=== PATIENT | female | born 1955 | race Caucasian/White ===

== ENCOUNTER 2023-05-30 10:27 | Inpatient (IN) | payer OTHER ==
[2023-05-30 11:14] LABS: Specific Gravity 1.008 (1.005-1.030); Urine Bilirubin NEGATIVE (Negative); Urine Blood Negative (Negative); Urine Clarity Clear (Clear); Urine Color Colorless (Yellow); Urine Glucose NEGATIVE (Negative); Urine Protein NEGATIVE (Negative); Urine Urobilinogen Normal (Normal)
[2023-05-30 11:23] LABS: Absolute Lymphocytes (CBC) 0.2 K/uL (0.7-4.9); Hematocrit 24.9 % (36.0-45.0); Lymphocytes % 3.7 % (15.3-44.8); MCV 73.5 fL (80-100); MPV 7.7 fL (7.6-11.3); Platelets 172 thou/uL (152-406); RBC Red Blood Cell Count 3.39 M/uL (3.86-4.86)
[2023-05-30 11:28] LABS: Protime INR 1.08
[2023-05-30 11:44] LABS: Albumin 2.6 g/dL (3.4-5.0); Bilirubin Direct 0.1 mg/dL (0-0.2); Bilirubin Indirect, Calculated 0.2 mg/dL (0.2-0.8); Bilirubin Total 0.3 mg/dL (0.2-1.0); Magnesium 1.6 mg/dL (1.6-2.4); Potassium 4.1 mEq/L (3.5-5.1); Protein, Total 5.5 g/dL (6.4-8.2)
[2023-05-30 11:52] LABS: Anisocytosis 1+; Blood Morphology Comment NOT SEEN (NOT SEEN); Hypochromasia 1+; Platelet Estimate ADEQ; White Blood Cell Scan OK (OK)
--- NOTE | 2023-05-30 12:23 | RAD REPORT ---
[facility] 11:43 am CLINICAL HISTORY: CHEST PAIN COMPARISON: No comparisons TECHNIQUE: Portable AP view of the chest. FINDINGS: Diffuse hyperinflation. Patchy right mid to lower lung airspace opacities. No pneumothora x or effusion. The cardiomediastinal contours are unremarkable. IMPRESSION: Patchy right mid to lower lung airspace opacities, concerning for pneumonia.
--- NOTE | 2023-05-30 12:35 | RAD REPORT ---
EXAM DESCRIPTION: CT - Head Brain Wo Cont - 05/30/2023 12:28 pm CLINICAL HISTORY: CONFUSED Headache, drowsiness COMPARISON: No comparisons TECHNIQUE: All CT scans are performed using dose optimization technique as appropriate and may inclu de automated exposure control or mA/KV adjustment according to patient size. FINDINGS: No intracranial hemorrhage, hydrocephalus or extra-axial fluid collection.Mild generalized brain atrophy.No areas of brain edema or evidence of midline shift. The paranasal sinuses and mastoids are clear. The calvarium is intact. IMPRESSION: No acute intracranial abnormality.
--- NOTE | 2023-05-30 12:42 | EDPHYS ---
Physician Documentation [facility] Name: Delfina Matos Age: 68 yrs Sex: Female : 1955 Arrival Date: 05/30/2023 Time: 10:27 Bed 7 Private MD: ED Physician Tk Ty HPI: 05/30 10:42 This 68 yrs old Female presents to ER via EMS with complaints of Chest Pain. ci 10:42 Patient is a 68-year-old female with PMH hypertension, hyperlipidemia, STEMI s/p PCI ci 05/05 who presents with chest pain and possible sepsis. EMS reports that family called for right-sided chest pain that feels similar to when she had a STEMI a few weeks ago. Upon their arrival patient was given 324 mg aspirin which resolved chest pain. Initial blood pressure for EMS was SBP 80, temp 102. Patient was started on 2 L normal saline bolus which improved blood pressure to 100s. Patient's family also reports that she has been confused, AO x 2-3. . Historical: - Allergies: 10:35 Codeine; ld1 - Home Meds: 10:35 clopidogrel oral [Active]; Lasix Oral [Active]; Hydrocodone-Acetaminophen Oral [Active];ld1 - PMHx: 10:35 insomnia; Hypertensive disorder; Hypercholesterolemia; Neuropathy; Myocardial ld1 infarction; Cancer of throat and neck; - PSHx: 10:35 Heart stent; ld1 - Immunization history:: Adult Immunizations up to date, Client reports receiving the 2nd dose of the Covid vaccine. - Social history:: Smoking status: Patient reports the use of cigarette tobacco products, smokes one-half pack cigarettes per day. - History obtained from: EMS. ROS: 10:42 Constitutional: Positive for fever, Negative for body aches, fatigue, ci 10:42 Cardiovascular: Positive for chest pain, Negative for edema, orthopnea, palpitations, 10:42 Respiratory: Positive for cough, Negative for hemoptysis, shortness of breath, wheezing, 10:42 Abdomen/GI: Positive for nausea, Negative for abdominal pain, vomiting, diarrhea, constipation, 10:42 Neuro: Positive for altered mental status, Negative for dizziness, gait disturbance, headache, hearing loss, loss of consciousness, Exam: 10:42 Constitutional: This is a well developed, well nourished patient who is awake, alert, ci and in no acute distress. Head/Face: Normocephalic, atraumatic. Eyes: Pupils equal round and reactive to light, extra-ocular motions intact. Lids and lashes normal. Conjunctiva and sclera are non-icteric and not injected. Cornea within normal limits. Periorbital areas with no swelling, redness, or edema. ENT: Nares patent. No nasal discharge, no septal abnormalities noted. Tympanic membranes are normal and external auditory canals are clear. Oropharynx with no redness, swelling, or masses, exudates, or evidence of obstruction, uvula midline. Mucous membranes moist. Neck: Trachea midline, no thyromegaly or masses palpated, and no cervical lymphadenopathy. Supple, full range of motion without nuchal rigidity, or vertebral point tenderness. No Meningismus. Chest/axilla: Normal chest wall appearance and motion. Nontender with no deformity. No lesions are appreciated. Cardiovascular: Regular rate and rhythm with a normal S1 and S2. No gallops, murmurs, or rubs. Normal PMI, no JVD. No pulse deficits. Respiratory: Lungs have equal breath sounds bilaterally, clear to auscultation and percussion. No rales, rhonchi or wheezes noted. No increased work of breathing, no retractions or nasal flaring. Abdomen/GI: Soft, non-tender, with normal bowel sounds. No distension or tympany. No guarding or rebound. No evidence of tenderness throughout. Back: No spinal tenderness. No costovertebral tenderness. Full range of motion. Skin: Warm, dry with normal turgor. Normal color with no rashes, no lesions, and no evidence of cellulitis. MS/ Extremity: Pulses equal, no cyanosis. Neurovascular intact. Full, normal range of motion. Neuro: Awake and alert, GCS 15, oriented to person, place, time, and situation. Cranial nerves II-XII grossly intact. Motor strength 5/5 in all extremities. Sensory grossly intact. Cerebellar exam normal. Normal gait. Psych: Awake, alert, with orientation to person, place and time. Behavior, mood, and affect are within normal limits. Vital Signs: 10:33 BP 83 / 41; Pulse 66; Temp 98.5(O); Pulse Ox 88% on R/A; Weight 53.98 kg; Height 5 ft. ld1 4 in. ; Pain 0/10; 10:38 BP 93 / 50; ld1 10:38 Pulse Ox 96% on 3 lpm NC; ld1 11:03 BP 123 / 50; Pulse 77; Resp 18; Pulse Ox 100% on 3 lpm NC; ld1 12:00 BP 90 / 55; Pulse 84; ld1 12:06 BP 114 / 48; Pulse 83; Resp 18; Pulse Ox 95% on R/A; ld1 12:15 BP 87 / 59; Pulse 76; ld1 12:26 BP 81 / 45; Pulse 72; ld1 12:30 BP 79 / 45; Pulse 71; ld1 12:37 BP 76 / 43; Pulse 77; ld1 12:45 BP 79 / 43; Pulse 73; ld1 13:12 BP 74 / 49; Pulse 78; ld1 13:15 BP 81 / 58; Pulse 75; ld1 13:27 BP 99 / 43; Pulse 73; ld1 13:29 BP 99 / 43; ld1 13:32 BP 118 / 45; Pulse 73; Resp 18; Pulse Ox 100% on 3 lpm NC; ld1 13:48 BP 118 / 35; ld1 13:53 BP 141 / 45; ld1 10:33 Body Mass Index 20.43 (53.98 kg, 162.56 cm) ld1 10:33 Pain Scale: Adult ld1 Procedures: 20:00 Central Line: the site was prepped with in sterile fashion, ChloraPrep, a triple lumen ci catheter was inserted, in the left femoral vein, in 1 attempts. placement was verified, by blood return, the site was dressed with Tegaderm, using sterile technique, the patient tolerated the procedure, well, 7.5 Upper Sorbian triple-lumen CVC placed with ultrasound guidance to the left femoral. Patient requiring persistent vasopressor support. Informed consent obtained. Patient tolerated procedure well, no immediate complications. MDM: 10:36 Patient medically screened. len 10:42 Differential diagnosis: abnormal EKG, acute myocardial infarction, coronary artery ci disease congestive heart failure esophagitis, gastroesophageal reflux disease (GERD), myocarditis, pneumonia, unstable angina, Sepsis, UTI. HEART Score: History: Moderately Suspicious (1), ECG: Normal (0), Age: > or = 65 years (2), Risk Factors: > or = 3 Risk factors for atherosclerotic disease (2), Troponin: < or = 1 x Normal Limit (0), Total Score = 6. The patient was not given aspirin in the Emergency Department. Administered by EMS. Data reviewed: vital signs, nurses notes, EKG. Independent interpretation of the following test(s) in the Emergency Department EKG: See my EKG interpretation above. Historians other than the Patient:. Care significantly affected by the following Social Determinants of Health: [facility] daughter . ED course: Patient presents with chest pain, concerns of sepsis. She is hypotensive on arrival, chest pain resolved prior to arrival to the ED. She is AOx3, CN II through XII is grossly intact no focal neurodeficits. Will obtain cardiac workup, infectious workup, CT head. Patient will likely require admission. Final disposition is pending labs and imaging.. 12:01 ED course: Awaiting chest x-ray, CT head. EMS did report that prior to arrival patient ci had received blood pressure meds and Lasix, likely contributing to her hypertension. BNP is elevated however patient is not hypoxic, not tachypneic, denies shortness of breath.. 12:35 Awaiting: CT scan results, waiting for transport. ci 12:37 ED course: Patient noted to be hypotensive on the monitor with SBP 74 after she ci returned from CT. Repeat blood pressure shows SBP 78. Will start on peripheral levo and admit to ICU for shock, cardiogenic versus septic. Patient received a total of 2 L normal saline bolus that was ongoing prior to arrival. proBNP elevated, possible CHF, will further fluid bolus. Hypoxic with O2 sat 89% on arrival, started on 2 to 3 L O2 via nasal cannula.. 20:00 ED course: Critical care time: I have personally spent 60 minutes of critical care ci time, exclusive of time spent on any procedures, and evaluation and management of this critically ill patient's condition of undifferentiated shock, hypoxic respiratory failure. I provided the following critical care treatment, vasopressor support, blood pressure management. 05/30 10:41 Order name: Basic Metabolic Panel; Complete Time: 12:00 ci 05/30 12:36 Interpretation: Abnormal: CRE 1.18. ci 05/30 10:41 Order name: CBC with Diff; Complete Time: 12:00 ci 05/30 11:42 Interpretation: Abnormal: HGB 7.7. ci 05/30 10:41 Order name: LFT's; Complete Time: 12:00 ci 05/30 10:41 Order name: Magnesium; Complete Time: 12:00 ci 05/30 10:41 Order name: NT PRO-BNP; Complete Time: 12:00 ci 05/30 Interpretation: Abnormal: NT PRO-BNP 4134. ci 05/30 10:41 Order name: PT-INR; Complete Time: 11:42 ci 05/30 10:41 Order name: Troponin HS; Complete Time: 12:00 ci 05/30 10:41 Order name: Blood Culture Adult (2) ci 05/30 10:41 Order name: Lactate w/ 2H reflex if indic.; Complete Time: 12:00 ci 05/30 12:36 Interpretation: Within normal limits. ci 05/30 10:41 Order name: Urinalysis w/ reflexes; Complete Time: 11:42 ci 05/30 10:41 Order name: Ptt, Activated; Complete Time: 11:42 ci 05/30 10:52 Order name: COVID-19 SARS RT PCR; Complete Time: 12:00 ci 05/30 10:52 Order name: Flu ci 05/30 11:28 Order name: CBC Smear Scan; Complete Time: 12:00 EDMS 05/30 13:16 Order name: Lactate w/ 2H reflex if indic.; Complete Time: 19:10 EDMS 05/30 13:29 Order name: T4 Free EDMS 05/30 13:29 Order name: Thyroid Stimulating Hormone EDMS 05/30 13:29 Order name: Urinalysis w/ reflexes EDMS 05/30 13:29 Order name: Basic Metabolic Panel EDMS 05/30 13:29 Order name: Basic Metabolic Panel EDMS 05/30 13:29 Order name: Basic Metabolic Panel EDMS 05/30 13:29 Order name: Basic Metabolic Panel EDMS 05/30 13:29 Order name: CBC with Automated Diff EDMS 05/30 13:29 Order name: CBC with Automated Diff EDMS 05/30 13:29 Order name: CBC with Automated Diff EDMS 05/30 13:29 Order name: CBC with Automated Diff EDMS 05/30 13:29 Order name: Lipid Profile EDMS 05/30 13:29 Order name: Lipid Profile EDMS 05/30 13:29 Order name: Magnesium EDMS 05/30 13:29 Order name: Magnesium EDMS 05/30 13:29 Order name: Magnesium EDMS 05/30 13:29 Order name: Magnesium EDMS 05/30 13:29 Order name: NT PRO-BNP EDMS 05/30 13:29 Order name: NT PRO-BNP EDMS 05/30 13:29 Order name: NT PRO-BNP EDMS 05/30 13:29 Order name: Phosphorus EDMS 05/30 13:29 Order name: Phosphorus EDMS 05/30 13:29 Order name: Phosphorus EDMS 05/30 13:29 Order name: Phosphorus EDMS 05/30 13:39 Order name: ABG Arterial Blood Gas; Complete Time: 19:10 EDMS 05/30 13:39 Order name: D-Dimer EDMS 05/30 10:41 Order name: XRAY Chest (1 view); Complete Time: 12:35 ci 05/30 12:35 Interpretation: Abnormal: Per Radiologist's finding(s): IMPRESSION: Patchy right mid ci to lower lung airspace opacities, concerning for pneumonia. 05/30 10:52 Order name: CT Head Brain wo Cont; Complete Time: 12:37 ci 05/30 12:37 Interpretation: No acute disease. ci 05/30 13:39 Order name: Echo with Doppler EDMS 05/30 10:41 Order name: EKG; Complete Time: 10:42 ci 05/30 11:43 Interpretation: NSR WITH PVC, HR 74, NO ACUTE ISCHEMIC CHANGES. ci 05/30 10:41 Order name: Cardiac monitoring; Complete Time: 10:43 ci 05/30 10:41 Order name: EKG - Nurse/Tech; Complete Time: 10:44 ci 05/30 10:41 Order name: IV Saline Lock; Complete Time: 10:44 ci 05/30 10:41 Order name: Accucheck; Complete Time: 11:03 ci 05/30 10:41 Order name: Cardiac monitoring; Complete Time: 10:43 ci 05/30 10:41 Order name: EKG - Nurse/Tech; Complete Time: 10:43 ci 05/30 10:41 Order name: IV Saline Lock - Large Bore; Complete Time: 10:43 ci 05/30 10:41 Order name: Vital Signs; Complete Time: 10:44 ci Administered Medications: 10:44 Drug: NS 0.9% IV 1000 ml IV at 1000 ml once Route: IV; Rate: 1000 ml; Site: right ld1 antecubital; 13:14 Drug: Rocephin IV 1 grams IV at calculated rate once; Given slow IV push per pharmacy ld1 instructions Route: IV; Rate: calculated rate; Site: left antecubital; 13:14 Drug: AZITHromycin IVPB 500 mg IVPB once over 1 hrs; (mix in 250 mL NS) Route: IVPB; ld1 Infused Over: 1 hrs; Site: left antecubital; 13:18 Drug: Norepinephrine IV 0.1 mcg/kg/min IV at calculated rate See Administration ld1 Instructions; (Standard concentration 4 mg / 250 mL D5W); Recommended max rate 3 mcg/kg/min; Titrate 0.05 mcg/kg/min as often as every 5 minutes to achieve goal (see titration policy); Goal parameter MAP greater than 65 mmHg. Route: IV; Rate: calculated rate; Site: right antecubital; 13:29 Follow up: BP 99 / 43; Rate change 0.15 mcg/kg/min; IV Status: Infusion continued ld1 13:50 Follow up: Rate change 0.2 mcg/kg/min ld1 Disposition: 22:43 Critical Care:. ci Disposition Summary: 05/30/23 12:41 Hospitalization Ordered Notes: Hospitalization Status: Inpatient Admission ci Provider: Fritz Alberto Condition: Stable ci Problem: new ci Symptoms: are unchanged ci Bed/Room Type: Standard ci Location: Intensive Care Unit(05/30/23 12:48) ci Room Assignment: 2-(05/30/23 13:27) bd Diagnosis - Pneumonia, unspecified organism ci - Unspecified systolic (congestive) heart failure ci - Shock, unspecified ci Forms: - Medication Reconciliation Form ci - SBAR form ci - Leadership Thank You Letter ci Critical care time excluding procedures: 22:43 Critical care time: Bedside Care: 60 minutes. Total time: 60 minutes ci Signatures: Dispatcher [employer] Georgette Prado Corey, MD MD cha Sims, Lauren, RN RN ld1 Tk Ty ci Corrections: (The following items were deleted from the chart) 10:38 10:35 PMHx: Cancer in situ of urinary bladder; ld1 ld1 10:38 10:35 PMHx: Cancer; ld1 ld1 12:00 12:00 NT PRO-BNP 4134. ci ci 12:48 12:41 Telemetry/MedSurg (Inpatient) ci ci 12:48 12:41 ci ci 13:27 12:48 ci bd 22:40 12:37 ED course: Patient noted to be hypotensive on the monitor with SBP 74 after she ci returned from CT. Repeat blood pressure shows SBP 78. Will start on peripheral levo and admit to ICU for shock. ci 22:42 12:37 ED course: Patient noted to be hypotensive on the monitor with SBP 74 after she ci returned from CT. Repeat blood pressure shows SBP 78. Will start on peripheral levo and admit to ICU for shock, cardiogenic versus septic. Hypoxic with O2 sat 89%, started on 2 to 3 L O2 via nasal cannula.. ci
--- NOTE | 2023-05-30 12:42 | ER ---
Nurse's Notes [facility] Name: Delfina Matos Age: 68 yrs Sex: Female : 1955 Arrival Date: 05/30/2023 Time: 10:27 Bed 7 Private MD: Diagnosis: Pneumonia, unspecified organism;Unspecified systolic (congestive) heart failure;Shock, unspecified Presentation: 05/30 10:33 Chief complaint: EMS states: toned out to pt home for chest pain. Recent STEMI on ld1 Thanksgiving - stents placed. Coronavirus screen: At this time, the client does not indicate any symptoms associated with coronavirus-19. Ebola Screen: No symptoms or risks identified at this time. Initial Sepsis Screen: Does the patient meet any 2 criteria? No. Patient's initial sepsis screen is negative. Does the patient have a suspected source of infection? No. Patient's initial sepsis screen is negative. Risk Assessment: Do you want to hurt yourself or someone else? Patient reports no desire to harm self or others. Onset of symptoms was May 30, 2023. 10:33 Method Of Arrival: EMS: [facility] ld1 10:33 Acuity: JOSÉ MIGUEL 2 ld1 Triage Assessment: 10:35 General: Appears in no apparent distress. comfortable, Behavior is calm, cooperative, ld1 appropriate for age. Pain: Denies pain. EENT: No signs and/or symptoms were reported regarding the EENT system. Neuro: Level of Consciousness is awake, alert, obeys commands, Oriented to person, place, time, situation. Cardiovascular: Capillary refill < 3 seconds Patient's skin is warm and dry. Rhythm is sinus rhythm. Respiratory: Airway is patent Respiratory effort is even, unlabored. GI: Abdomen is flat, non-distended. : No signs and/or symptoms were reported regarding the genitourinary system. Derm: No signs and/or symptoms reported regarding the dermatologic system. Musculoskeletal: No signs and/or symptoms reported regarding the musculoskeletal system. Historical: - Allergies: 10:35 Codeine; ld1 - Home Meds: 10:35 clopidogrel oral [Active]; Lasix Oral [Active]; Hydrocodone-Acetaminophen Oral [Active];ld1 - PMHx: 10:35 insomnia; Hypertensive disorder; Hypercholesterolemia; Neuropathy; Myocardial ld1 infarction; Cancer of throat and neck; - PSHx: 10:35 Heart stent; ld1 - Immunization history:: Adult Immunizations up to date, Client reports receiving the 2nd dose of the Covid vaccine. - Social history:: Smoking status: Patient reports the use of cigarette tobacco products, smokes one-half pack cigarettes per day. - History obtained from: EMS. Screenin:39 [facility] ED Fall Risk Assessment (Adult) History of falling in the last 3 months, ld1 including since admission No falls in past 3 months (0 pts). Abuse screen: Denies threats or abuse. Denies injuries from another. Nutritional screening: No deficits noted. Tuberculosis screening: No symptoms or risk factors identified. Assessment: 10:38 Reassessment: See triage assessment. ld1 11:03 Reassessment: Patient appears in no apparent distress at this time. No changes from ld1 previously documented assessment. Patient and/or family updated on plan of care and expected duration. Pain level reassessed. 12:00 Reassessment: Patient appears in no apparent distress at this time. No changes from ld1 previously documented assessment. Patient and/or family updated on plan of care and expected duration. Pain level reassessed. 13:00 Reassessment: Patient appears in no apparent distress at this time. No changes from ld1 previously documented assessment. Patient and/or family updated on plan of care and expected duration. Pain level reassessed. 13:30 Reassessment: Notified ERP we needed central line for Levophed. ERP states "I have to ld1 stabilize another patient right now, but then I can after they are admitted to ICU.". Vital Signs: 10:33 BP 83 / 41; Pulse 66; Temp 98.5(O); Pulse Ox 88% on R/A; Weight 53.98 kg; Height 5 ft. ld1 4 in. ; Pain 0/10; 10:38 BP 93 / 50; ld1 10:38 Pulse Ox 96% on 3 lpm NC; ld1 11:03 BP 123 / 50; Pulse 77; Resp 18; Pulse Ox 100% on 3 lpm NC; ld1 12:00 BP 90 / 55; Pulse 84; ld1 12:06 BP 114 / 48; Pulse 83; Resp 18; Pulse Ox 95% on R/A; ld1 12:15 BP 87 / 59; Pulse 76; ld1 12:26 BP 81 / 45; Pulse 72; ld1 12:30 BP 79 / 45; Pulse 71; ld1 12:37 BP 76 / 43; Pulse 77; ld1 12:45 BP 79 / 43; Pulse 73; ld1 13:12 BP 74 / 49; Pulse 78; ld1 13:15 BP 81 / 58; Pulse 75; ld1 13:27 BP 99 / 43; Pulse 73; ld1 13:29 BP 99 / 43; ld1 13:32 BP 118 / 45; Pulse 73; Resp 18; Pulse Ox 100% on 3 lpm NC; ld1 13:48 BP 118 / 35; ld1 13:53 BP 141 / 45; ld1 10:33 Body Mass Index 20.43 (53.98 kg, 162.56 cm) ld1 10:33 Pain Scale: Adult ld1 ED Course: 10:33 Patient arrived in ED. ld1 10:35 Triage completed. ld1 10:35 Arm band placed on right wrist. EKG completed in triage. Results shown to MD. ld1 10:36 Josh Madison MD is Attending Physician. len 10:37 Attending Physician role handed off by Josh Madison MD ci 10:37 Tk Ty is Attending Physician. ci 10:39 Patient has correct armband on for positive identification. Placed in gown. Bed in low ld1 position. Call light in reach. Side rails up X2. media monitor on. Pulse ox on. NIBP on. Door closed. Noise minimized. Warm blanket given. 10:39 No provider procedures requiring assistance completed. Inserted saline lock: 18 gauge ld1 in right antecubital area, using aseptic technique. Maintain EMS IV. Dressing intact. Good blood return noted. Gauge \\T\\ site: 16G LAC. 10:40 Maricel Escamilla, GIOVANNI is Primary Nurse. ld1 11:03 COVID-19 SARS RT PCR Sent. ld1 11:03 Urinalysis w/ reflexes Sent. ld1 11:03 Straight cath inserted, using sterile technique, 16 Fr. Specimen obtained. Returned ld1 clear yellow urine. Patient tolerated well. Purewick applied to patient. Patient maintains SpO2 saturation greater than 95% on room air. 11:03 Oxygen administration via nasal cannula \\T\\ 3L/min. ld1 11:26 Second set of blood cultures drawn by me. zm 11:45 XRAY Chest (1 view) In Process Unspecified. EDMS 12:30 CT Head Brain wo Cont In Process Unspecified. EDMS 12:40 Henry Storm is Hospitalizing Provider. ci 12:40 Hospitalizing Provider role handed off by Henry Storm ci 12:40 Fritz Alberto MD is Hospitalizing Provider. ci 13:53 Patient admitted, IV remains in place. ld1 Administered Medications: 10:44 Drug: NS 0.9% IV 1000 ml IV at 1000 ml once Route: IV; Rate: 1000 ml; Site: right ld1 antecubital; 13:14 Drug: Rocephin IV 1 grams IV at calculated rate once; Given slow IV push per pharmacy ld1 instructions Route: IV; Rate: calculated rate; Site: left antecubital; 13:14 Drug: AZITHromycin IVPB 500 mg IVPB once over 1 hrs; (mix in 250 mL NS) Route: IVPB; ld1 Infused Over: 1 hrs; Site: left antecubital; 13:18 Drug: Norepinephrine IV 0.1 mcg/kg/min IV at calculated rate See Administration ld1 Instructions; (Standard concentration 4 mg / 250 mL D5W); Recommended max rate 3 mcg/kg/min; Titrate 0.05 mcg/kg/min as often as every 5 minutes to achieve goal (see titration policy); Goal parameter MAP greater than 65 mmHg. Route: IV; Rate: calculated rate; Site: right antecubital; 13:29 Follow up: BP 99 / 43; Rate change 0.15 mcg/kg/min; IV Status: Infusion continued ld1 13:50 Follow up: Rate change 0.2 mcg/kg/min ld1 Medication: 13:53 VIS not applicable for this client. ld1 Outcome: 12:41 Decision to Hospitalize by Provider. ci 13:52 Admitted to ICU accompanied by nurse, room 2, Report called to GIOVANNI Reich ld1 13:52 Condition: unchanged 13:52 Instructed on the need for admit, 14:08 Patient left the ED. ld1 Signatures: Dispatcher [employer] EDMS Josh Madison MD MD cha Sims, Lauren, RN RN ld1 Mayte Quinteros Chizite ci Corrections: (The following items were deleted from the chart) 10:38 10:35 PMHx: Cancer in situ of urinary bladder; ld1 ld1 10:38 10:35 PMHx: Cancer; ld1 ld1 10:39 10:33 BP 83 / 41; Pulse 66bpm; Pulse Ox 96% RA; Temp 98.5F Oral; 53.98 kg; Height 5 ft. ld1 4 in.; BMI: 20.4; Pain 0/10, Adult; ld1
[2023-05-30] MEDS ORDERED: NA CHLORIDE 0.9% 250 ML ONE (13:06)
[2023-05-30] MEDS ORDERED: CEFTRIAXONE 1000 MG/VIAL ONE (13:06)
[2023-05-30] MEDS ORDERED: AZITHROMYCIN 500 MG INJ IVPB ONE (13:06)
[2023-05-30] MEDS ORDERED: NOREPINEPHRINE BITARTRATE/D5W 4 MG/250 ML BAG IV ONE (13:07)
[2023-05-30] MEDS ORDERED: ACETAMINOPHEN 500 MG TAB PO PRN (13:23)
[2023-05-30] MEDS ORDERED: ALBUTEROL 2.5 MG/3 ML NEB SOL NEB PRN (13:23)
[2023-05-30] MEDS ORDERED: NITROGLYCERIN 0.4 MG/TAB SL PRN (13:32)
[2023-05-30] MEDS ORDERED: ASPIRIN 325 MG TAB PO ONE (13:32)
[2023-05-30] MEDS ORDERED: MORPHINE 2 MG/ML SYR IV PRN (13:32)
--- NOTE | 2023-05-30 13:45 | P.HP ---
Certification for Inpatient With expected LOS: <2 Midnights Patient will require the following post-hospital care: None Practitioner: I am a practitioner with admitting privileges, knowledge of patient current condition, hospital course, and medical plan of care. Services: Services provided to patient in accordance with Admission requirements found in Title 42 Section 412.3 of the Code of Federal Regulations <Catracho Angeles - Last Filed: 05/30/23 14:30> Patient History Date of Service: 05/30/23 Reason for admission: Pneumonia, CHF, fever History of Present Illness: This 68 yrs old Female with PMH hypertension, hyperlipidemia, STEMI s/p PCI 05/05 who presents to ER via EMS with complaints of right sided Chest Pain and fever since this morning. No aggravating or relieving factors. Patient's daughter historian reports that she called EMS when the patient found her lethargic and having fever, Heart rate at 110/min and reported right sided chest pain. She reports that feels similar when she had STEMI a month ago. Patient denies chest pain at this time. Patient denies shortness of breath, abdominal pain, nausea or vomiting. ED course: Vital Signs: 10:33 BP 83 / 41; Pulse 66; Temp 98.5(O); Pulse Ox 88% on R/A; Weight 53.98 kg; Height 5 ft. 4 in. ; Pain 0/10; EKG: : NSR WITH PVC. Troponin is normal.Patient presents with chest pain, concerns of sepsis. She is hypotensive on arrival, chest pain resolved prior to arrival to the ED. Patient recently moved from [facility] to live with daughter. Initial laboratory evaluation: CBC normal, BMP is showing GFR51, elevated BNP 4134. Initial CXR showing Patchy right mid to lower lung airspace opacities, concerning for pneumonia. CT head is negative. Admiting the patient with diagnosis of Pneumonia, and systolic CHF. Home medications list reviewed: Yes - Past Medical/Surgical History Diabetic: No -: CAD, POST [place] -: HTN -: CHF -: HLD -: NEUROPATHY -: CANCER OF THROAT AND NECK -: HEART STENT 2022 - Family History Father -: Heart disease - Social History Smoking Status: Former smoker Smoking therapy provided: Yes Patient receptive to therapy: Yes Alcohol use: No CD- Drugs: No Caffeine use: Yes Place of Residence: Home <AngelesCatracho shah - Last Filed: 05/30/23 14:30> Date of Service: 05/30/23 <Fritz Alberto - Last Filed: 05/30/23 14:47> Allergies codeine Allergy (Intermediate, Verified 11/27/12 22:37) Hives Home Medications: Aspirin [Aspirin EC] 81 mg PO DAILY 05/30/23 Atorvastatin Calcium [Lipitor] 80 mg PO BEDTIME 05/30/23 Clopidogrel Bisulfate [Plavix] 75 mg PO DAILY 05/30/23 Furosemide [Lasix] 20 mg PO DAILY PRN 05/30/23 Magnesium Oxide [Mag-Oxide] 400 mg PO DAILY 05/30/23 RX: Gabapentin 600 mg PO TID 05/30/23 RX: Hydrocodone 10/APAP 325 [[place] 10/325*] 1 tab PO Q6H PRN 05/30/23 RX: Losartan Potassium 25 mg PO DAILY 05/30/23 RX: Metoprolol Tartrate 25 mg PO BID 05/30/23 RX: Trazodone HCl 100 mg PO BEDTIME 05/30/23 Review of Systems 10-point ROS is otherwise unremarkable <Catracho Angeles - Last Filed: 05/30/23 14:30> Physical Examination - Physical Exam General: Alert, Oriented x1 HEENT: Atraumatic, Normocephalic Neck: Supple, 2+ carotid pulse no bruit Respiratory: Clear to auscultation bilaterally, Normal air movement Cardiovascular: No edema, Normal pulses, Normal S1 S2 Capillary refill: <2 Seconds Gastrointestinal: Normal bowel sounds, Soft and benign Musculoskeletal: No clubbing, No swelling Integumentary: No rashes, No breakdown, No significant lesion Neurological: Normal speech, Other (LETHARGIC) - Studies Laboratory Data (last 24 hrs) 05/30/23 05/30/23 05/30/23 11:10 11:10 11:10 WBC 5.10 Hgb 7.7 L Hct 24.9 L Plt Count 172 PT 11.9 INR 1.08 APTT 25.3 Sodium 138 Potassium 4.1 BUN 20 H Creatinine 1.18 H Glucose 80 Magnesium 1.6 Total Bilirubin 0.3 AST 16 ALT 14 Alkaline Phosphatase 71 <Catracho Angeles - Last Filed: 05/30/23 14:30> - Studies Laboratory Data (last 24 hrs) 05/30/23 05/30/23 05/30/23 11:10 11:10 11:10 WBC 5.10 Hgb 7.7 L Hct 24.9 L Plt Count 172 PT 11.9 INR 1.08 APTT 25.3 Sodium 138 Potassium 4.1 BUN 20 H Creatinine 1.18 H Glucose 80 Magnesium 1.6 Total Bilirubin 0.3 AST 16 ALT 14 Alkaline Phosphatase 71 <Fritz Alberto Daniel - Last Filed: 05/30/23 14:47> Assessment and Plan - Problems (Diagnosis) (1) Pneumonia, community acquired Current Visit: Yes Status: Acute Qualifiers: Laterality: right Lung location: middle lobe of lung Qualified Code(s): J18.9 - Pneumonia, unspecified organism (2) Unspecified systolic (congestive) heart failure Current Visit: Yes Status: Chronic (3) CAD (coronary artery disease) Current Visit: Yes Status: Chronic Qualifiers: Coronary Disease-Associated Artery/Lesion type: [place] artery (4) History of [place] (myocardial infarction) Current Visit: Yes Status: Chronic (5) Insomnia Current Visit: Yes Status: Acute (6) HLD (hyperlipidemia) Current Visit: Yes Status: Chronic Qualifiers: Hyperlipidemia type: other hyperlipidemia Qualified Code(s): E78.49 - Other hyperlipidemia; E78.4 - Other hyperlipidemia (7) Hypotension Current Visit: Yes Status: Acute (8) Sepsis Current Visit: Yes Status: Acute - Plan Pneumonia, community acquired Hypotension Sepsis Chest Pain and fever. Vital Signs: 10:33 BP 83 / 41; Pulse 66; Temp 98.5(O); Pulse Ox 88% on R/A; Weight 53.98 kg; Height 5 ft. 4 in. ; Pain 0/10; Septic shock is suspected due to SBP < 90 mmHg , MAP <65 , decreased blood pressure by 40 mmHg after bolus of 2 Lit NS Plan: - Initial Lactate 0.8 - Blood cultures drawn before antibiotics were given - antibiotics started: Zithro and ceftriaxone - In regards to fluids: NS 2 litres given in the ED. We will start Levophed at this time to keep the SBP>90mmhg -Admitting the pt in ICU for close monitoring Unspecified systolic (congestive) heart failure -Chronic, controlled on Lasix 20mg po as needed for increased swelling or SOB. -Ordered Echo -Artificial Cherry Maker consult -elevated BNP 4134. CAD (coronary artery disease) History of [place] (myocardial infarction) -Chest Pain, concern for Acute Coronary Syndrome (Non-ST Segment Elevation Myocardial Infarction) - EKG: No obvious ST segment changes, trend - Serial troponin - Ordered transthoracic echocardiogram - Ordered chest x-ray - Patchy right mid to lower lung airspace opacities, concerning for pneumonia 05/30/2023 - Ordered d-dimer - Consult Cardiology - Dr. Arevalo - S/P aspirin 324 mg PO x 1 by the EMS - Start daily baby aspirin - Symptom control with PRN acetaminophen, nitroglycerin, morphine - will reconcile the home meds and resume. Pt is on asa, plavix, metoprolol and atrovastatin. Insomnia HLD (hyperlipidemia) -Chronic, reconcile and resume home meds as appropriate. Code status: Full code Diet:Cardiac DVT Prophylaxis:Lovenox . Discharge Plan: Home Plan to discharge in: 48 Hours - Advance Directives Does patient have a Living Will: No Does patient have a Durable POA for Healthcare: No - Code Status/Comfort Care Code Status Assessed: Yes (FULL CODE) Code Status: Full Code Physician Review: Patient Assessed, Agree with Above Assessment and Plan Critical Care: Yes Time Spent Managing Pts Care (In Minutes): 55 (MINUTES) <Catracho Angeles - Last Filed: 05/30/23 14:30> - Plan Pt seen and examined. I agree with the note by the NEWSPAPER WRITER. Pt is a 68 yrs old Female with PMH hypertension, hyperlipidemia, STEMI s/p PCI 05/05 who presents to ER via EMS with complaints of Chest Pain and fever. Her daughter reports that pt had fever and AMS at home. On admission, lab studies showed Calcium 7.4. Cr 1.18, BNP 4134, albumin 2.6, CXR shows right mid and lower lung pneumonia. At bedside, pt was sleeping. She has poor dental hygiene. A/P: septic shock 2/2 RLL pneumonia: Will continue rocephin and azithro. Will follow up blood culture and sputum cx. Will continue ICU level of care. Chest pain: Will r/o ACS. Trend troponin. Continue aspirin and follow Cardiology eval. Elevated BNP: will follow up Echo. Hypotension: Will continue levophed and monitor BP. Pseudohypocalcemia: Corrected calcium is within normal limit. Will monitor. HLD: statin DVT ppx: SCD <Fritz Alberto - Last Filed: 05/30/23 14:47>
[2023-05-30] MEDS ORDERED: NOREPINEPHRINE BITARTRATE/D5W 4 MG/250 ML BAG IV SCH ×2 (14:00→18:57)
[2023-05-30] MEDS: NA CHLORIDE 0.9% 1,000 ML IV SCH (14:43)
[2023-05-30 14:44] VITALS: BMI 20.4
[2023-05-30 16:43] LABS: Arterial Blood Carboxyhemoglob 1.6 % (0-1.5); Blood Gas Oxyhemoglobin 93.5 % (94-97); Blood O2 Saturation 96.5 % (92-98.5)
[2023-05-30] MEDS: HEPARIN 5000 UNIT/ML 1 ML VIAL SQ SCH (18:04)
[2023-05-30] MEDS ORDERED: ALBUTEROL 2.5 MG/3 ML NEB SOL NEB SCH (19:00)
[2023-05-30] MEDS ORDERED: MAGNESIUM SULFATE 1 gm IVPB 1 GM/100 ML BAG IV ONE (20:00)
[2023-05-30] MEDS ORDERED: NS 0.9% VIAL 0 ML ONE (20:04)
[2023-05-30] MEDS: ATORVASTATIN 80 MG TAB PO SCH (21:00)
[2023-05-30 22:00] LABS: Magnesium 2.3 mg/dL (1.6-2.4)
[2023-05-31] MEDS: HEPARIN 5000 UNIT/ML 1 ML VIAL SQ SCH ×3 (00:18→17:20)
[2023-05-31] MEDS: NA CHLORIDE 0.9% 1,000 ML IV SCH ×3 (00:18→20:59)
[2023-05-31 01:28] LABS: Specific Gravity 1.007 (1.005-1.030); Urine Bilirubin NEGATIVE (Negative); Urine Blood Negative (Negative); Urine Clarity Clear (Clear); Urine Color Colorless (Yellow); Urine Glucose NEGATIVE (Negative); Urine Protein NEGATIVE (Negative); Urine Urobilinogen Normal (Normal)
[2023-05-31 05:05] LABS: Absolute Lymphocytes (CBC) 0.5 K/uL (0.7-4.9); Lymphocytes % 6.2 % (15.3-44.8); MCV 74.3 fL (80-100); Platelets 189 thou/uL (152-406); RBC Red Blood Cell Count 3.36 M/uL (3.86-4.86)
[2023-05-31 05:35] LABS: Magnesium 2.2 mg/dL (1.6-2.4); Phosphorus 3.3 mg/dL (2.5-4.9); Potassium 4.1 mEq/L (3.5-5.1)
--- NOTE | 2023-05-31 05:42 | P.CNS ---
Date of Consult: 05/30/23 Reason for Consult: recent PCI, chest pain Requesting Physician: Tk Ty Chief Complaint: Pneumonia, CHF, fever History of Present Illness: Ms. Matos is a 68 yo frail patient with a past medical history of HTN, HDL, CHF who had a STEMI with PCI 05/05. She has moved from [place] to live with her Daughter. Her Daughter called EMS as Ms. Matos was weak, lethargic, and complaining of right sided chest pain that was similar to her symptoms last month. In the emergency room she was hypotensive SPB in the high 70s, low 80s but her chest pain had resolved. She was admitted to ICU and cardiology was consulted Allergies codeine Allergy (Intermediate, Verified 11/27/12 22:37) [facility] Home medications list reviewed: Yes Home Medications: Aspirin [Aspirin EC] 81 mg PO DAILY 05/30/23 Atorvastatin Calcium [Lipitor] 80 mg PO BEDTIME 05/30/23 Clopidogrel Bisulfate [Plavix] 75 mg PO DAILY 05/30/23 Furosemide [Lasix] 20 mg PO DAILY PRN 05/30/23 Gabapentin 600 mg PO TID 05/30/23 Hydrocodone 10/APAP 325 [[place] 10/325*] 1 tab PO Q6H PRN 05/30/23 Losartan Potassium 25 mg PO DAILY 05/30/23 Magnesium Oxide [Mag-Oxide] 400 mg PO DAILY 05/30/23 Metoprolol Tartrate 25 mg PO BID 05/30/23 Trazodone HCl 100 mg PO BEDTIME 05/30/23 - Past Medical/Surgical History Diabetic: No -: CAD, POST [place] -: HTN -: CHF -: HLD -: NEUROPATHY -: CANCER OF THROAT AND NECK -: PREVIOUS STEMI -: HEART STENT 2022 -: HYSTERECTOMY 1986 -: BACK SURGERY 1986 -: ANKLE SURGERY 1986 Psychosocial/ Personal History: Moving from [place] to live with her Daughter - Family History Father Medical History: Heart disease Mother Medical History: Heart disease, Diabetes - Social History Smoking Status: Current every day smoker Alcohol use: No CD- Drugs: No Caffeine use: Yes Place of Residence: Home Review of Systems 10-point ROS is otherwise unremarkable General: Fever, Weakness, Malaise, As per HPI Respiratory: Shortness of Breath, As per HPI Cardiovascular: Chest Pain, As per HPI Neurological: Weakness, As per HPI Physical Examination Temp Pulse Resp BP Pulse Ox 97.5 F 80 13 149/63 H 100 05/31/23 04:00 05/31/23 05:00 05/31/23 05:00 05/31/23 05:00 05/31/23 05:00 General: Oriented x3, Other (thin, frail) HEENT: Atraumatic, Normocephalic Neck: Supple, 2+ carotid pulse no bruit Respiratory: Diminished, Crackles/rales Cardiovascular: No edema, Normal S1 S2, Other (with unifocal PVCs) Capillary refill: <2 Seconds Gastrointestinal: Soft and benign Musculoskeletal: No clubbing Integumentary: Other (pallor) Neurological: Abnormal tone Lymphatics: No axilla or inguinal lymphadenopathy External genitalia: Deferred Rectal: Deferred Laboratory Data (last 24 hrs) 05/30/23 05/30/23 05/30/23 11:10 11:10 11:10 WBC 5.10 Hgb 7.7 L Hct 24.9 L Plt Count 172 PT 11.9 INR 1.08 APTT 25.3 Sodium 138 Potassium 4.1 BUN 20 H Creatinine 1.18 H Glucose 80 Magnesium 1.6 Total Bilirubin 0.3 AST 16 ALT 14 Alkaline Phosphatase 71 - Problems (1) CAD (coronary artery disease) Current Visit: Yes Status: Chronic Plan: trend troponins, continue Plavix, Aspirin, and Heparin. ECHO ordered per medicine As patient has pneumonia with sepsis, fluid bolus given, will hold lasix for now, albumin 2.6 so pt may have some edema as a result, creatinine stable for now at 1.18 Qualifiers: Coronary Disease-Associated Artery/Lesion type: [place] artery (2) HLD (hyperlipidemia) Current Visit: Yes Status: Chronic Plan: Lipid panel, continue Atorvastatin 80mg po q hs, cardiac diet as tolerated. Qualifiers: Hyperlipidemia type: other hyperlipidemia Qualified Code(s): E78.49 - Other hyperlipidemia; E78.4 - Other hyperlipidemia (3) HTN (hypertension) Current Visit: Yes Status: Chronic Plan: Monitor blood pressure, hold blood pressure medications for now, pt is being weaned off Levaphed. Will place back on Lopressor 25mg po BID when pressure is more stable Qualifiers: Hypertension type: primary hypertension Qualified Code(s): I10 - Essential (primary) hypertension (4) History of [place] (myocardial infarction) Current Visit: Yes Status: Chronic Plan: Trend troponin, telemetry, continue Plavix
[2023-05-31] MEDS: CEFTRIAXONE 1,000 MG in NA CHLORIDE 0.9% 50 ML IVPB SCH (09:00)
[2023-05-31] MEDS: AZITHROMYCIN IV 500 MG in NA CHLORIDE 0.9% 250 ML IVPB SCH (09:00)
[2023-05-31] MEDS ORDERED: HOME MED 1 EA UNK (Aspirin [Aspirin Ec] 81 MG Tablet.Dr) PO SCH (09:00)
[2023-05-31] MEDS: MAGNESIUM OXIDE 400 MG TAB PO SCH (09:00)
--- NOTE | 2023-05-31 09:05 | P.PN ---
Subjective Date of Service: 05/31/23 Chief Complaint: Pneumonia, CHF, fever Subjective: No new changes Review of Systems 10-point ROS is otherwise unremarkable General: Weakness Respiratory: Cough Cardiovascular: Light Headedness Physical Examination - Vital Signs Temperature: 98.5 F Blood Pressure: 146/56 Pulse: 84 Respirations: 19 Pulse Ox (%): 95 - Physical Exam General: In no apparent distress, Oriented x3 HEENT: Atraumatic, Normocephalic, PERRLA Neck: Supple, 2+ carotid pulse no bruit Respiratory: Diminished Cardiovascular: Normal pulses, Regular rate/rhythm Capillary refill: <2 Seconds Gastrointestinal: Soft and benign Musculoskeletal: No clubbing Integumentary: No rashes Neurological: Other (frail, albumin low 2.6) External genitalia: Deferred Rectal: Deferred - Studies Laboratory Data (last 24 hrs) 05/30/23 05/30/23 05/30/23 11:10 11:10 11:10 WBC 5.10 Hgb 7.7 L Hct 24.9 L Plt Count 172 PT 11.9 INR 1.08 APTT 25.3 Sodium 138 Potassium 4.1 BUN 20 H Creatinine 1.18 H Glucose 80 Magnesium 1.6 Total Bilirubin 0.3 AST 16 ALT 14 Alkaline Phosphatase 71 Assessment And Plan - Current Problems (Diagnosis) (1) CAD (coronary artery disease) Current Visit: Yes Status: Chronic Plan: trend troponins, continue Plavix, Aspirin, and Heparin. ECHO ordered per medicine As patient has pneumonia with sepsis, fluid bolus given, will hold lasix for now, albumin 2.6 so pt may have some edema as a result, creatinine stable for now at 1.18 Recommend outpatient stress when pt recovers from pneumonia with sepsis. Cardiology will sign off Qualifiers: Coronary Disease-Associated Artery/Lesion type: [place] artery (2) HLD (hyperlipidemia) Current Visit: Yes Status: Chronic Plan: Lipid panel, continue Atorvastatin 80mg po q hs, cardiac diet as tolerated. Qualifiers: Hyperlipidemia type: other hyperlipidemia Qualified Code(s): E78.49 - Other hyperlipidemia; E78.4 - Other hyperlipidemia (3) HTN (hypertension) Current Visit: Yes Status: Chronic Plan: Monitor blood pressure, hold blood pressure medications for now, pt is being weaned off Levaphed. Will place back on Lopressor 25mg po BID when pressure is more stable Qualifiers: Hypertension type: primary hypertension Qualified Code(s): I10 - Essential (primary) hypertension (4) History of [place] (myocardial infarction) Current Visit: Yes Status: Chronic Plan: Trend troponin, telemetry, continue Plavix Physician Review: Patient Assessed, Agree with Above Assessment and Plan
[2023-05-31] MEDS ORDERED: MAGNESIUM OXIDE 400 MG TAB ONE (09:25)
[2023-05-31] MEDS ORDERED: AZITHROMYCIN 500 MG INJ IVPB ONE (09:25)
[2023-05-31] MEDS ORDERED: CLOPIDOGREL 75 MG TABLET ONE (09:25)
[2023-05-31] MEDS ORDERED: HEPARIN 5000 UNIT/ML 1 ML VIAL ONE (09:26)
[2023-05-31] MEDS ORDERED: NA CHLORIDE 0.9% 100 ML ONE (09:26)
[2023-05-31] MEDS ORDERED: ASPIRIN EC 81 MG TAB PO ONE (09:26)
[2023-05-31] MEDS: CLOPIDOGREL 75 MG TABLET PO SCH (09:34)
[2023-05-31] MEDS: ASPIRIN EC 81 MG TAB PO SCH (09:35)
--- NOTE | 2023-05-31 09:55 | P.PN ---
Subjective Date of Service: 05/31/23 Chief Complaint: Pneumonia, CHF, fever Pt is resting comfortably in bed. She denies any chest pain or SOB. BP has improved. Pt is off levophed. Cardiology is following. Will transfer to med/surg floor with telemetry. Review of Systems 10-point ROS is otherwise unremarkable General: Unremarkable Eyes: Unremarkable ENT: Unremarkable Respiratory: Unremarkable Cardiovascular: Unremarkable Gastrointestinal: Unremarkable Genitourinary: Unremarkable Musculoskeletal: Unremarkable Integumentary: Unremarkable Neurological: Unremarkable Lymphatics: Unremarkable Physical Examination - Vital Signs Temperature: 98.5 F Blood Pressure: 146/56 Pulse: 84 Respirations: 19 Pulse Ox (%): 95 - Physical Exam General: Alert, In no apparent distress, Oriented x3 HEENT: Atraumatic, Normocephalic, PERRLA Neck: Supple, 2+ carotid pulse no bruit Respiratory: Clear to auscultation bilaterally, Normal air movement Cardiovascular: No edema, Normal pulses, Normal S1 S2 Capillary refill: <2 Seconds Gastrointestinal: Normal bowel sounds, Soft and benign, Non-distended Musculoskeletal: No clubbing, No swelling Integumentary: No rashes, No breakdown Neurological: Normal gait, Normal speech, Normal tone, Sensation intact Lymphatics: No axilla or inguinal lymphadenopathy - Studies Laboratory Data (last 24 hrs) 05/30/23 05/30/23 05/30/23 11:10 11:10 11:10 WBC 5.10 Hgb 7.7 L Hct 24.9 L Plt Count 172 PT 11.9 INR 1.08 APTT 25.3 Sodium 138 Potassium 4.1 BUN 20 H Creatinine 1.18 H Glucose 80 Magnesium 1.6 Total Bilirubin 0.3 AST 16 ALT 14 Alkaline Phosphatase 71 Assessment And Plan - Plan Septic shock 2/2 RLL pneumonia: Improved. Off levophed. Will continue rocephin and azithro. Will follow up blood culture and sputum cx. Chest pain: Will r/o ACS. Trend troponin. Continue plavix and aspirin. Cardiology is following. Elevated BNP: will follow up Echo. Hypotension: resolved. Off levophed. Htn; Will resume home meds. Pseudohypocalcemia: Calcium is 7.4. Corrected calcium is within normal limit. Will monitor. HLD: statin DVT ppx: heparin Dipso: Will transfer to med/surg floor with telemetry. Physician Review: Patient Assessed, Agree with Above Assessment and Plan
[2023-05-31] MEDS ORDERED: NA CHLORIDE 0.9% 1,000 ML ONE (11:25)
[2023-05-31] MEDS ORDERED: NA CHLORIDE 0.9% 250 ML ONE (11:25)
--- NOTE | 2023-05-31 11:51 | EKG ---
Test Date: 2023-05-30 Test Time: 10:35:38 Brush Hand: QUAN MEASUREMENT RESULTS: Intervals: Rate: 74 ME: 136 QRSD: 92 QT: 392 QTc: 435 [place]: P: 70 ME: 136 QRS: 52 T: 83 INTERPRETIVE STATEMENTS: Sinus rhythm with frequent premature ventricular complexes T wave abnormality, consider lateral ischemia Abnormal ECG No previous ECG available for comparison Electronically Signed On 05-31-23 11:47:08 ETHNOGRAPHER by Ezequiel Arevalo
--- NOTE | 2023-05-31 12:05 | ECHO ---
HEIGHT: 5 ft 4 in WEIGHT: 119 lb 0.088 oz DATE OF STUDY: 05/31/[address]: aCtracho Angeles NP 2-DIMENSIONAL: YES M.MODE: YES DOPPLER: YES COLOR FLOW: YES TDS: PORTABLE: YES DEFINITY: BUBBLE STUDY: DIAGNOSIS: HYPERTENSION, CONGESTIVE HEART FAILURE CARDIAC HISTORY: CATHERIZATION: YES SURGERY: NO PROSTHETIC VALVE: NO PACEMAKER: NO MEASUREMENTS (cm) DIASTOLIC (NORMALS) SYSTOLIC (NORMALS) IVSd 0.9 (0.6-1.2) LA Diam 2.7 (1.9-4.0) LVEF 51% LVIDd 5.3 (3.5-5.7) LVIDs 3.9 (2.0-3.5) %FS 26% LVPWd 0.9 (0.6-1.2) Ao Diam 2.7 (2.0-3.7) 2 DIMENSIONAL ASSESSMENT: RIGHT ATRIUM: NORMAL LEFT ATRIUM: NORMAL RIGHT VENTRICLE: NORMAL LEFT VENTRICLE: NORMAL TRICUSPID VALVE: MILD TRICUSPID REGURGITATION MITRAL VALVE: MILD MITRAL REGURGITATION PULMONIC VALVE: NORMAL AORTIC VALVE: CALCIFIED, NO AORTIC STENOSIS PERICARDIAL EFFUSION: TRACE AORTIC ROOT: NORMAL LEFT VENTRICULAR WALL MOTION: NORMAL DOPPLER/COLOR FLOW: SEE BELOW COMMENTS: 1. NORMAL LEFT VENTRICULAR EJECTION FRACTION 55-60% WITH NORMAL WALL MOTION 2. GRADE I DIASTOLIC DYSFUNCTION 3. CALCIFIED AORTIC VALVE, NO AORTIC STENOSIS 4. MILD AORTIC INSUFFICIENCY 5. MILD MITRAL REGURGITATION 6. MILD TRICUSPID REGURGITATION 7. SEVERE PULMONARY HYPERTENSION WITH RIGHT VENTRICULAR SYSTOLIC PRESSURE GREATER THAN 60 mmHg 8. TRACE PERICARDIAL EFFUSION TECHNOLOGIST: FROYLAN PEDERSEN
[2023-05-31] MEDS: ATORVASTATIN 80 MG TAB PO SCH (20:59)
[2023-06-01] MEDS ORDERED: GABAPENTIN 300 MG CAP PO SCH ×3 (00:11→14:00)
[2023-06-01] MEDS: HEPARIN 5000 UNIT/ML 1 ML VIAL SQ SCH ×2 (00:37→09:58)
[2023-06-01] MEDS ORDERED: GABAPENTIN 300 MG CAP PO ONE (01:00)
[2023-06-01] MEDS: NA CHLORIDE 0.9% 1,000 ML IV SCH (06:10)
[2023-06-01 07:19] LABS: Absolute Lymphocytes (CBC) 0.5 K/uL (0.7-4.9); Hematocrit 30.4 % (36.0-45.0); Lymphocytes % 7.6 % (15.3-44.8); MCV 73.6 fL (80-100); MPV 8.5 fL (7.6-11.3); Platelets 185 thou/uL (152-406); RBC Red Blood Cell Count 4.13 M/uL (3.86-4.86)
[2023-06-01 08:52] LABS: Platelet Estimate ADEQ
[2023-06-01 08:53] LABS: Anisocytosis 2+; Blood Morphology Comment NOTED (NOT SEEN); Hypochromasia 1+; Polychromasia 1+; Target Cells 1+
[2023-06-01] MEDS: MAGNESIUM OXIDE 400 MG TAB PO SCH (09:00)
[2023-06-01 09:28] VITALS: O2SAT 97
[2023-06-01] MEDS: AZITHROMYCIN IV 500 MG in NA CHLORIDE 0.9% 250 ML IVPB SCH (09:58)
[2023-06-01] MEDS: CLOPIDOGREL 75 MG TABLET PO SCH (09:58)
[2023-06-01] MEDS: ASPIRIN EC 81 MG TAB PO SCH (09:58)
[2023-06-01] MEDS: CEFTRIAXONE 1,000 MG in NA CHLORIDE 0.9% 50 ML IVPB SCH (09:59)
[2023-06-01 10:16] LABS: Magnesium 1.6 mg/dL (1.6-2.4); Phosphorus 2.3 mg/dL (2.5-4.9); Potassium 3.6 mEq/L (3.5-5.1)
[2023-06-01] MEDS ORDERED: ALBUTEROL 2.5 MG/3 ML NEB SOL NEB PRN (11:24)
--- NOTE | 2023-06-01 12:04 | P.PN ---
Subjective Date of Service: 06/01/23 Chief Complaint: Pneumonia, CHF, fever Subjective: No new changes, Improving, Doing well Patient is alert oriented x 3 NAD NAD Vital stable Patient denies any breathing trouble On oxygen 2 L by nasal cannula <Catracho Angeles - Last Filed: 06/01/23 11:56> Date of Service: 06/03/23 <Fritz Alberto - Last Filed: 06/03/23 17:39> Review of Systems 10-point ROS is otherwise unremarkable <Catracho Angeles - Last Filed: 06/01/23 11:56> Physical Examination - Vital Signs Temperature: 97.6 F Blood Pressure: 149/68 Pulse: 85 Respirations: 16 Pulse Ox (%): 97 - Physical Exam General: Alert, Oriented x3 HEENT: Atraumatic, Normocephalic Neck: Supple, 2+ carotid pulse no bruit Respiratory: Clear to auscultation bilaterally, Normal air movement Cardiovascular: No edema, Normal pulses Capillary refill: <2 Seconds Gastrointestinal: Normal bowel sounds, Soft and benign Musculoskeletal: No clubbing, No swelling Integumentary: No rashes, No breakdown Neurological: Normal speech, Normal affect <Catracho Angeles - Last Filed: 06/01/23 11:56> Assessment And Plan - Current Problems (Diagnosis) (1) Pneumonia, community acquired Status: Acute Qualifiers: Laterality: right Lung location: middle lobe of lung Qualified Code(s): J18.9 - Pneumonia, unspecified organism (2) Unspecified systolic (congestive) heart failure Status: Chronic (3) CAD (coronary artery disease) Status: Chronic Qualifiers: Coronary Disease-Associated Artery/Lesion type: [place] artery (4) History of [place] (myocardial infarction) Status: Chronic (5) HLD (hyperlipidemia) Status: Chronic Qualifiers: Hyperlipidemia type: other hyperlipidemia Qualified Code(s): E78.49 - Other hyperlipidemia; E78.4 - Other hyperlipidemia (6) Hypotension Status: Acute (7) Sepsis Status: Acute - Plan Septic shock 2/2 RLL pneumonia: Improved. Off levophed. Will continue rocephin and azithro. Will follow up blood culture and sputum cx. Chest pain: Will r/o ACS. Trend troponin. Continue plavix and aspirin. Cardiology is following. Elevated BNP: will follow up Echo. Hypotension: resolved. Off levophed. Htn; Will resume home meds. Pseudohypocalcemia: Calcium is 7.4. Corrected calcium is within normal limit. Will monitor. HLD: statin DVT ppx: heparin Code status: Full code Diet:Cardiac DVT Prophylaxis:Lovenox . Discharge Plan: Home Plan to discharge in: 24 Hours - Code Status/Comfort Care Code Status Assessed: Yes (full code) Code Status: Full Code Physician Review: Patient Assessed, Agree with Above Assessment and Plan <Catracho Angeles - Last Filed: 06/01/23 11:56> - Plan Pt seen and examined. I agree with the note by the EYEGLASS INSPECTOR.Continue iv abx for pneumonia <Fritz Alberto - Last Filed: 06/03/23 17:39>
--- NOTE | 2023-06-01 13:52 | P.DS ---
Admission Date: 05/30/23 Discharge Date: 06/01/23 Reason for Admission: Pneumonia, CHF, fever - Problems (1) Pneumonia, community acquired Status: Acute Qualifiers: Laterality: right Lung location: middle lobe of lung Qualified Code(s): J18.9 - Pneumonia, unspecified organism (2) Unspecified systolic (congestive) heart failure Status: Chronic (3) CAD (coronary artery disease) Status: Chronic Qualifiers: Coronary Disease-Associated Artery/Lesion type: kashia artery (4) History of [place] (myocardial infarction) Status: Chronic (5) HLD (hyperlipidemia) Status: Chronic Qualifiers: Hyperlipidemia type: other hyperlipidemia Qualified Code(s): E78.49 - Other hyperlipidemia; E78.4 - Other hyperlipidemia (6) Hypotension Status: Acute (7) Sepsis Status: Acute Brief History of Present Illness: This 68 yrs old Female with PMH hypertension, hyperlipidemia, STEMI s/p PCI 05/05 who presents to ER via EMS with complaints of right sided Chest Pain and fever since this morning. No aggravating or relieving factors. Patient's daughter historian reports that she called EMS when the patient found her lethargic and having fever, Heart rate at 110/min and reported right sided chest pain. She reports that feels similar when she had STEMI a month ago. Patient denies chest pain at this time. Patient denies shortness of breath, abdominal pain, nausea or vomiting. ED course: Vital Signs: 10:33 BP 83 / 41; Pulse 66; Temp 98.5(O); Pulse Ox 88% on R/A; Weight 53.98 kg; Height 5 ft. 4 in. ; Pain 0/10; EKG: : NSR WITH PVC. Troponin is normal.Patient presents with chest pain, concerns of sepsis. She is hypotensive on arrival, chest pain resolved prior to arrival to the ED. Patient recently moved from [facility] to live with daughter. Initial laboratory evaluation: CBC normal, BMP is showing GFR51, elevated BNP 4134. Initial CXR showing Patchy right mid to lower lung airspace opacities, concerning for pneumonia. CT head is negative. Admiting the patient with diagnosis of Pneumonia, and systolic CHF. Hospital Course: This 68 yrs old Female with PMH hypertension, hyperlipidemia, who admitted with complaints of right sided Chest Pain and fever 05/30/23. Admitted the patient with diagnosis of Pneumonia, and systolic CHF. Patient was hypotensive on admission. Patient was admitted to ICU for close observation and management of sepsis with hypotension then transferred to the regular telemetry unit when the blood pressure became normalized. On 06/01/2020, patient was seen on morning rounds and deemed medically stable for discharge. Patient was discharged with instructions to schedule follow-up appointments with PCP in 1 week. Patient was provided prescriptions for Zithromax. 1. Please call and schedule a follow-up appointment with your PCP ( in 3-5 days - Please follow-up with your PCP for medication refills/adjustments- Please follow-up with your PCP for medication refills/adjustments <Catracho Angeles - Last Filed: 06/01/23 13:55> Admission Date: 05/30/23 Discharge Date: 06/04/23 Hospital Course: Pt seen and examined. I agree with the note by the [employer] L[employer]AGE STENOGRAPHER. Ok to discharge pt <Fritz Alberto - Last Filed: 06/04/23 17:10> Disposition: ROUTINE DISCHARGE Discharge Condition: GOOD Vital Signs/Physical Exam: Temp Pulse Resp BP Pulse Ox 97.6 F 85 16 149/68 H 97 06/01/23 12:11 06/01/23 12:11 06/01/23 12:11 06/01/23 12:11 06/01/23 12:11 General: Alert, Oriented x3 HEENT: Atraumatic, Normocephalic Neck: Supple, 2+ carotid pulse no bruit Respiratory: Clear to auscultation bilaterally, Normal air movement Cardiovascular: No edema, Normal pulses Capillary refill: <2 Seconds Gastrointestinal: Normal bowel sounds, Soft and benign Musculoskeletal: No clubbing, No swelling Integumentary: No rashes, No breakdown Neurological: Normal gait, Normal speech, Sensation intact Laboratory Data at Discharge: WBC 6.10 thou/uL (4.3-10.9) 06/01/23 06:20 Hgb 9.6 g/dL (12.0-15.0) L D 06/01/23 06:20 Hct 30.4 % (36.0-45.0) L 06/01/23 06:20 Plt Count 185 thou/uL (152-406) 06/01/23 06:20 PT 11.9 SECONDS (9.5-12.5) 05/30/23 11:10 INR 1.08 05/30/23 11:10 APTT 25.3 SECONDS (24.3-36.9) 05/30/23 11:10 Sodium 141 mEq/L (136-145) 06/01/23 09:52 Potassium 3.6 mEq/L (3.5-5.1) 06/01/23 09:52 BUN 13 mg/dL (7-18) 06/01/23 09:52 Creatinine 0.83 mg/dL (0.55-1.02) 06/01/23 09:52 Glucose 117 mg/dL (74-106) H 06/01/23 09:52 Phosphorus 2.3 mg/dL (2.5-4.9) L 06/01/23 09:52 Magnesium 1.6 mg/dL (1.6-2.4) 06/01/23 09:52 Total Bilirubin 0.3 mg/dL (0.2-1.0) 05/30/23 11:10 AST 16 U/L (15-37) 05/30/23 11:10 ALT 14 U/L (13-56) 05/30/23 11:10 Alkaline Phosphatase 71 U/L (45-117) 05/30/23 11:10 Triglycerides 86 mg/dL (<150) 05/31/23 04:35 Cholesterol 156 mg/dL (<200) 05/31/23 04:35 HDL Cholesterol 63 mg/dL (40-60) H 05/31/23 04:35 Cholesterol/HDL Ratio 2.48 05/31/23 04:35 <Catracho Angeles - Last Filed: 06/01/23 13:55> Vital Signs/Physical Exam: Temp Pulse Resp BP Pulse Ox 98.2 F 56 16 162/65 H 96 06/01/23 13:54 06/01/23 13:54 06/01/23 13:54 06/01/23 13:54 06/01/23 13:54 Laboratory Data at Discharge: WBC 6.10 thou/uL (4.3-10.9) 06/01/23 06:20 Hgb 9.6 g/dL (12.0-15.0) L D 06/01/23 06:20 Hct 30.4 % (36.0-45.0) L 06/01/23 06:20 Plt Count 185 thou/uL (152-406) 06/01/23 06:20 PT 11.9 SECONDS (9.5-12.5) 05/30/23 11:10 INR 1.08 05/30/23 11:10 APTT 25.3 SECONDS (24.3-36.9) 05/30/23 11:10 Sodium 141 mEq/L (136-145) 06/01/23 09:52 Potassium 3.6 mEq/L (3.5-5.1) 06/01/23 09:52 BUN 13 mg/dL (7-18) 06/01/23 09:52 Creatinine 0.83 mg/dL (0.55-1.02) 06/01/23 09:52 Glucose 117 mg/dL (74-106) H 06/01/23 09:52 Phosphorus 2.3 mg/dL (2.5-4.9) L 06/01/23 09:52 Magnesium 1.6 mg/dL (1.6-2.4) 06/01/23 09:52 Total Bilirubin 0.3 mg/dL (0.2-1.0) 05/30/23 11:10 AST 16 U/L (15-37) 05/30/23 11:10 ALT 14 U/L (13-56) 05/30/23 11:10 Alkaline Phosphatase 71 U/L (45-117) 05/30/23 11:10 Triglycerides 86 mg/dL (<150) 05/31/23 04:35 Cholesterol 156 mg/dL (<200) 05/31/23 04:35 HDL Cholesterol 63 mg/dL (40-60) H 05/31/23 04:35 Cholesterol/HDL Ratio 2.48 05/31/23 04:35 <Fritz Alberto - Last Filed: 06/04/23 17:10> Diet: Regular <Catracho Angeles - Last Filed: 06/01/23 13:55> <Fritz Alberto - Last Filed: 06/04/23 17:10> Home Medications: Aspirin [Aspirin EC] 81 mg PO DAILY 05/30/23 Atorvastatin Calcium [Lipitor] 80 mg PO BEDTIME 05/30/23 Clopidogrel Bisulfate [Plavix*] 75 mg PO DAILY 05/30/23 Furosemide [Lasix] 20 mg PO DAILY PRN 05/30/23 Gabapentin 600 mg PO TID 05/30/23 Hydrocodone 10/APAP 325 [[place] 10/325*] 1 tab PO Q6H PRN 05/30/23 Losartan Potassium 25 mg PO DAILY 05/30/23 Magnesium Oxide [Mag-Oxide] 400 mg PO DAILY 05/30/23 Metoprolol Tartrate 25 mg PO BID 05/30/23 Trazodone HCl 100 mg PO BEDTIME 05/30/23 Azithromycin [Zithromax] 250 mg PO DAILY 5 Days #6 tab 06/01/23 New Medications: Azithromycin [Zithromax] 250 mg PO DAILY 5 Days #6 tab Physician Discharge Instructions: This 68 yrs old Female with PMH hypertension, hyperlipidemia, who admitted with complaints of right sided Chest Pain and fever 05/30/23. Admitted the patient with diagnosis of Pneumonia, and systolic CHF. Patient was hypotensive on admission. Patient was admitted to ICU for close observation and management of sepsis with hypotension then transferred to the regular telemetry unit when the blood pressure became normalized. On 06/01/2020, patient was seen on morning rounds and deemed medically stable for discharge. Patient was discharged with instructions to schedule follow-up appointments with PCP in 1 week. Patient was provided prescriptions for Zithromax. 1. Please call and schedule a follow-up appointment with your PCP ( in 3-5 days - Please follow-up with your PCP for medication refills/adjustments Followup: [facility] [Primary Care Provider] -
[2023-06-01 13:59] VITALS: BP 162/65; TEMP 98.2
== END 2023-06-01 16:00 | disposition home or self-care (01) | DRG 871 ==
LOC: ER 10:27 → 3RD-ICU 13:40 → 2ND 05-31 15:02
PROVIDERS: ADMIT Hospitalist; ATTEND Hospitalist
PROC: 06HY33Z Insertion of Infusion Device into Lower Vein, Percutaneous Approach (ICD-10-PCS; principal; 2023-05-30)
PROC: 3E033XZ Introduction of Vasopressor into Peripheral Vein, Percutaneous Approach (ICD-10-PCS; 2023-05-30)
PROC: 4A033R1 Measurement of Arterial Saturation, Peripheral, Percutaneous Approach (ICD-10-PCS; 2023-05-30)
DX: A41.9 Sepsis, unspecified organism (principal); J18.9 Pneumonia, unspecified organism; R65.21 Severe sepsis with septic shock; I50.22 Chronic systolic (congestive) heart failure; I11.0 Hypertensive heart disease with heart failure; E78.00 Pure hypercholesterolemia, unspecified; G47.00 Insomnia, unspecified; I25.10 Atherosclerotic heart disease of native coronary artery without angina pectoris; F17.210 Nicotine dependence, cigarettes, uncomplicated; I25.2 Old myocardial infarction; Z88.5 Allergy status to narcotic agent; Z95.5 Presence of coronary angioplasty implant and graft; Z79.02 Long term (current) use of antithrombotics/antiplatelets; Z11.52 Encounter for screening for COVID-19; Z79.82 Long term (current) use of aspirin; Z79.899 Other long term (current) drug therapy; Z90.710 Acquired absence of both cervix and uterus
CPT/HCPCS: 36415; 51702; 70450; 71045; 80048; 80061; 80076; 81003; 82805; 83605; 83735; 83880; 84100; 84439; 84443; 84484; 85025; 85379; 85610; 85730; 87040; 87635; 93005; 93306; 94760; 99285; A4216; J0696; J1644; J3475; J7030; J7050